=== PATIENT | female | born 2000 | race Two or more races ===

== ENCOUNTER 2018-09-26 15:16 | Emergency (ER) | payer MEDICAID ==
[~2018-09-26] VITALS: Ht 162.6 cm; Wt 70.3 kg
[2018-09-26] MEDS ORDERED: TESSALON PERLE100 MG ORAL (15:40)
[2018-09-26] MEDS ORDERED: TYLENOL EXTRA500 MG ORAL (15:40)
[2018-09-26] MEDS ORDERED: SUDAFED PE PRE1 EACH PO (15:40)
--- NOTE | 2018-09-26 15:40 | Emergency Room Report ---
History of Present Illness General Chief Complaint: Flu Like Symptoms Source: Patient Present Illness HPI 18-year-old female patient presents the ER complaining of cough and "flulike symptoms" for the past 3 days. Reports sick contacts at home with similar symptoms. Reports subjective fever at home, currently afebrile in ER. Reports cough with sputum. Denies hemoptysis. Reports chest pain with cough. Reports pain is reproducible. Denies history of asthma or heart disease. Denies recent travel. Immobilization. Denies recent travel outside the country. Denies vomiting or diarrhea. Denies abdominal pain. Denies dysuria. Reports up-to-date on vaccinations. States did not receive flu vaccine this year. Denies smoking cigarettes. Denies history of cancer. Denies other aggravating or relieving factors. Denies calf pain. Reports history of anxiety , states is not taking medication that was prescribed to her. Denies thoughts of hurting herself or others. States his been taking DayQuil, NyQuil, Tylenol, states last dose taken earlier this morning. Also complaining of sore throat and mild earache during this time. Allergies: Coded Allergies: No Known Allergies (Unverified , 09/26/18) Patient History Past Medical History: see triage record Last Menstrual Period: on period Reviewed Nursing Documentation: PMH: Agreed; PSxH: Agreed Nursing Documentation-PMH Past Medical History: No Stated History Review of Systems All Other Systems: negative except mentioned in HPI Physical Exam Vital Signs Date Time Temp Pulse Resp B/P (MAP) Pulse Ox O2 Delivery O2 Flow Rate FiO2 09/26/18 15:21 99.9 110 18 113/71 95 Room Air Sp02 EP Interpretation: reviewed, normal General Appearance: well appearing, no apparent distress, alert, GCS 15, non- toxic Head: normocephalic, atraumatic Eyes: bilateral eye normal inspection, bilateral eye PERRL ENT: hearing grossly normal, normal pharynx, no angioedema, normal voice, TMs + canals normal, uvula midline, moist mucus membranes, nasal congestion Neck: full range of motion, no meningismus, no bony tend Respiratory: lungs clear, normal breath sounds, no rhonchi, no respiratory distress, no accessory muscle use, no wheezing, speaking full sentences, other - Sternal chest tender to palpation, no flail chest, no bony deformity, chest symmetrical Cardiovascular #1: regular rate, rhythm, no edema Gastrointestinal: non tender, soft, no mass, non-distended, no guarding, no rebound Genitourinary: no CVA tenderness Musculoskeletal: back normal, digits/nails normal, gait/station normal, normal range of motion, non-tender, no calf tenderness, Alexa's Sign negative Neurologic: alert, oriented x3, responsive, motor strength/tone normal, sensory intact Skin: no rash Medical Decision Making PA Attestation Dr. Good is my supervising Physician whom patient management has been discussed with. Diagnostic Impression: Primary Impression: Influenza-like symptoms ER Course Pt presents to ED c/o cough, congestion, chest discomfort with cough. DDX considered but are not limited to influenza, viral URI, pneumonia, strep throat, rhinitis, sinusitis, otitis media, otitis externa, On PE, chest is TTP; chest pain likely musculoskeletal in nature secondary to cough, does not require cardiac workup at this time. Patient instructed to take NSAIDs as needed for pain symptoms. VITAL SIGNS are WNL, patient is afebrile. ER COURSE: Provided cough and pain medication in the ER. CXR negative for acute disease, no consolidation consistent with pneumonia, does not require antibiotics at this time. Lungs clear to auscultation, no wheezes, rhonci or rales. patient afebrile. no tonsillar exudates, no pharyngeal erythema, history of cough, no fever, no stridor, uvula midline, low suspicion for peritonsillar abscess. Likely viral etiology of symptoms. Symptomatic treatment. drink plenty of fluids. Salt water gargles for sore throat. Followup with PCP for further treatment and/or referral as needed. Patient has had symptoms longer than 48 hours, would not benefit from Tamiflu. DISCHARGE: At this time pt is stable for d/c to home. Patient is resting comfortably, in no acute distress, nontoxic appearing. Patient to take medications as instructed Will provide with patient care instructions and any necessary prescriptions. Care plan and follow-up instructions provided. Patient instructed to follow-up with primary care provider in 3 - 5 days. Patient questions asked and answered. Patient reports understanding and agreement to treatment plan. ER precautions given. Patient instructed to return to ER immediately for any new or worsening of symptoms including but not limited to increasing SOB, persistent fever, intractable vomiting. - Please note that this Emergency Department Report was dictated using [employer] supervisor technology software, occasionally this can lead to erroneous entry secondary to interpretation by the dictation equipment. Chest X-Ray Diagnostic Results Chest X-Ray Diagnostic Results : Chest X-Ray Ordered: Yes # of Views/Limited/Complete: 1 View Indication: Chest Pain EP Interpretation: Yes PA Xray: Interpretation reviewed, by supervising MD, and agrees with findings. Interpretation: no consolidation, no effusion, no pneumothorax, no acute cardiopulmonary disease Impression: No acute disease REFUGIO José PA-C Last Vital Signs Date Time Temp Pulse Resp B/P (MAP) Pulse Ox O2 Delivery O2 Flow Rate FiO2 09/26/18 15:25 110 18 Room Air 09/26/18 15:21 99.9 113/71 95 Status: improved Disposition: HOME, SELF-CARE Condition: Stable Scripts D-Methorphan/PE/Acetaminophen (Sudafed PE Pressure+Pain+Cough) 1 Each Tablet 1 EACH PO BID, #24 TAB Prov: Josias José 09/26/18 Acetaminophen* (TYLENOL EXTRA STRENGTH*) 500 Mg Tablet 500 MG ORAL Q8H PRN for Prn Headache/Temp > 101, #30 TAB 0 Refills Prov: Josias José 09/26/18 Benzonatate* (TESSALON PERLE*) 100 Mg Capsule 100 MG ORAL THREE TIMES A DAY, #30 PERLE Prov: Josias José 09/26/18 Patient Instructions: Influenza, Adult, [id number] Additional Instructions: Followup with primary care provider in 3 -5 days. Drink plenty fluids. Take medications as directed. Patient questions asked and answered. ER precautions given, patient instructed to return to ER immediately for any new or worsening of symptoms. Josias José Sep 26, 2018 15:40
--- NOTE | 2018-09-26 15:41 | NUR ---
ED Nurse Note: pt walked in to ED due to flu like sx for last 3 days. pt c/o coughing, fever and chills. breath sounds clear.
[2018-09-26] MEDS ORDERED: Acetaminophen 500mg (ES) tab ORAL ONE (15:45)
[2018-09-26] MEDS ORDERED: Benzonatate 100mg Perles ORAL ONE (15:45)
[2018-09-26 16:01] VITALS: BP 127/70
--- NOTE | 2018-09-26 16:02 | NUR ---
ER DISCHARGE NOTE: Patient is cleared to be discharged per ERMD, pt is aox4, on room air, with stable vital signs. pt was given dc and prescription instructions, pt was able to verbalize understanding, pt id band removed . pt is able to ambulate with steady gait. pt took all belongings.
--- NOTE | 2018-09-26 16:50 | Diagnostic Imaging Report ---
Indication: Chest pain, cough Technique: One view of the chest Comparison: none Findings: Lungs and pleural spaces are clear. Heart size is normal Impression: No acute process
== END 2018-09-26 16:10 | disposition home or self-care (01) ==
LOC: EMR 15:57
DX: J11.1 Influenza due to unidentified influenza virus with other respiratory manifestations (principal)
CPT/HCPCS: 71045; 99283